=== PATIENT | male | born 1955 | race Hispanic/Latino ===

== ENCOUNTER 2019-12-20 09:29 | Emergency (ER) | payer BC ==
[~2019-12-20 09:29] MED LIST: AEC81 PO; COLON HEALTH; METO25TA3 PO; NITR0.4T50 SL; OLME20TA10 PO; ROSU20TA31 PO; TAMS-1 PO; TICA90TA PO
[2019-12-20 10:06] LABS: BASOPHILS % (AUTO) 0.5 % (0.0-5.0); EOSINOPHILS % (AUTO) 0.9 % (0.0-8.0); HEMATOCRIT 40.9 % (42-54); LYMPHOCYTES % (AUTO) 37.3 % (21.0-51.0); MEAN CORPUSCULAR HGB CONC 34.2 g/dL (32.0-36.0); MEAN CORPUSCULAR VOLUME 90.5 fL (79-99); MONOCYTES % (AUTO) 7.4 % (3.0-13.0); NEUTROPHILS % (AUTO) 53.5 % (40.0-77.0); PLATELET COUNT (AUTO) 204 K/uL (130-400); RED BLOOD CELL COUNT(AUTO) 4.52 MIL/uL (4.50-6.20); RED CELL DISTRIBUTION WIDTH 12.1 % (11.0-15.5); WHITE BLOOD COUNT (AUTO) 5.7 K/uL (4.8-10.8)
[2019-12-20 10:15] LABS: CREATININE 0.9 mg/dL (0.5-1.5); POTASSIUM 4.5 mmol/L (3.5-5.1)
[2019-12-20] MEDS ORDERED: ASPIRIN 325 MG TABLET ONE (10:30)
== END 2019-12-20 13:16 | disposition home or self-care (01) ==
LOC: EDH 09:29
DX: R53.81 Other malaise (principal); R53.83 Other fatigue; I10 Essential (primary) hypertension; E78.00 Pure hypercholesterolemia, unspecified
CPT/HCPCS: 36415; 71045; 80048; 84484; 85025; 93005

== ENCOUNTER → 2020-01-07 | Outpatient (CLI) | payer BC | END | disposition home or self-care (01) | LOC: SHCH 14:14 | PROVIDERS: ATTEND Internal Medicine Cardiovascular Disease | DX: I25.10 Atherosclerotic heart disease of native coronary artery without angina pectoris (principal) | CPT/HCPCS: 93306 ==

== ENCOUNTER → 2020-01-22 | Outpatient (CLI) | payer BC | END | disposition home or self-care (01) | LOC: SHCH 08:27 | PROVIDERS: ATTEND Internal Medicine Cardiovascular Disease | DX: I65.23 Occlusion and stenosis of bilateral carotid arteries (principal); R42 Dizziness and giddiness | CPT/HCPCS: 93880 ==

== ENCOUNTER 2022-08-26 11:11 | Day surgery (SDC) | payer BC, SELFPAY ==
[2022-08-25 14:25] VITALS: BP 111/66
[2022-08-25 14:28] LABS: BASOPHILS % (AUTO) 0.6 % (0.0-5.0); EOSINOPHILS % (AUTO) 1.1 % (0.0-8.0); HEMATOCRIT 43.3 % (42-54); LYMPHOCYTES % (AUTO) 32.7 % (21.0-51.0); MEAN CORPUSCULAR HEMOGLOBIN 31.1 pg (27.0-33.0); MEAN CORPUSCULAR HGB CONC 33.5 g/dL (32.0-36.0); MEAN CORPUSCULAR VOLUME 92.9 fL (79-99); MONOCYTES % (AUTO) 7.1 % (3.0-13.0); NEUTROPHILS % (AUTO) 58.3 % (40.0-77.0); PLATELET COUNT (AUTO) 244 K/uL (130-400); RED BLOOD CELL COUNT(AUTO) 4.66 MIL/uL (4.50-6.20); RED CELL DISTRIBUTION WIDTH 12.9 % (11.0-15.5); WHITE BLOOD COUNT (AUTO) 6.2 K/uL (4.8-10.8)
[2022-08-25 14:38] LABS: INR 1.01 (0.85-1.15)
[2022-08-25 14:40] LABS: PARTIAL THROMBOPLASTIN TIME 34.7 SEC (26.3-35.5)
[2022-08-25 14:45] LABS: CREATININE 0.8 mg/dL (0.5-1.5); POTASSIUM 4.6 mmol/L (3.5-5.1)
[~2022-08-26] VITALS: Ht 175.3 cm; Wt 106.7 kg
[~2022-08-26 11:11] MED LIST changes: +APIX5TAB PO; -COLON HEALTH; -METO25TA3 PO; +METO25TA6 PO; -NITR0.4T50 SL; -OLME20TA10 PO; +OLME20TA73 PO; -TAMS-1 PO; -TICA90TA PO; +VITAMIN C PO; +VITAMIN D PO
[2022-08-26 11:45] VITALS: BP 119/73
[2022-08-26] MEDS ORDERED: LIDOCAINE HCL 2% VISCOUS 15 ML UDCUP ONE (12:09)
[2022-08-26] MEDS ORDERED: FLUMAZENIL 0.1MG/1ML 5ML VIAL IV ONE (12:10)
[2022-08-26] MEDS ORDERED: NALOXONE HCL 0.4 MG/1 ML ML ONE (12:10)
[2022-08-26] MEDS ORDERED: FENTANYL CITRATE PF 50 MCG/1 ML 2ML VIAL ONE ×2 (12:10→13:34)
[2022-08-26] MEDS ORDERED: MIDAZOLAM HCL 1 MG/ML 2ML VIAL ONE ×2 (12:11→13:34)
== END 2022-08-26 15:45 | disposition home or self-care (01) ==
LOC: DAH 11:11
PROVIDERS: ATTEND Internal Medicine Cardiovascular Disease
DX: I08.1 Rheumatic disorders of both mitral and tricuspid valves (principal); I48.0 Paroxysmal atrial fibrillation; I25.2 Old myocardial infarction; I44.7 Left bundle-branch block, unspecified; I11.9 Hypertensive heart disease without heart failure; I25.110 Atherosclerotic heart disease of native coronary artery with unstable angina pectoris; E66.9 Obesity, unspecified; E78.5 Hyperlipidemia, unspecified; F17.210 Nicotine dependence, cigarettes, uncomplicated; Z82.49 Family history of ischemic heart disease and other diseases of the circulatory system; Z83.3 Family history of diabetes mellitus; Z82.3 Family history of stroke; Z80.9 Family history of malignant neoplasm, unspecified; Z72.89 Other problems related to lifestyle; Z95.5 Presence of coronary angioplasty implant and graft; Z68.34 Body mass index [BMI] 34.0-34.9, adult
CPT/HCPCS: 80048; 85025; 85610; 85730; 36415; 93005; 92960; 93325; 93312; A4223 ×3; J3010 ×2; J2250 ×2; A4615; A4215; A7002; A4222; A4221; A4663; A4216; A4606; 99152; J2310; J3490

== ENCOUNTER → 2024-05-24 | Outpatient (CLI) | payer MEDICARE ==
[~2024-05-24] MED LIST changes: -ROSU20TA31 PO; +ROSU20TA98 PO
[2024-05-24 12:44] LABS: CREATININE 0.9 mg/dL (0.5-1.3)
== END | disposition home or self-care (01) ==
LOC: LAB 11:14
PROVIDERS: ATTEND Student in an Organized Health Care Education/Training Program
DX: M79.9 Soft tissue disorder, unspecified (principal)
CPT/HCPCS: 36415; 82565; 84520

== ENCOUNTER → 2024-05-30 | Outpatient (CLI) | payer MEDICARE ==
[~2024-05-30] MED LIST changes: +GADOTERATE MEGLUMINE 10 MMOL/20 ML VIAL IV ONE
--- NOTE | 2024-05-30 13:36 | HMCIMG ---
MR HUMERUS RIGHT WWO HISTORY: Lump in the biceps COMPARISON: None TECHNIQUE: MRI of the right humerus was performed utilizing multiple pulse sequences in axial, coronal and sagittal planes. Patient was given 20 cc of Clariscan through intravenous route. FINDINGS: At the region of interest where marker was placed, there is round enhancing nodule measuring 17 x 19 mm within the right biceps muscle with neoplastic process not excluded. Other possibility cannot be excluded. There is complex bony lesion noted in the right humeral head and humeral neck measuring 3.8 x 2.8 cm with enhancement with differential diagnosis include enchondroma versus chondrosarcoma. No adjacent soft tissue mass is seen however. No evidence of fracture or dislocation is seen. IMPRESSION: 1. At the region of interest where marker was placed, there is round enhancing nodule measuring 17 x 19 mm within the right biceps muscle with neoplastic process not excluded. Other possibility cannot be excluded. There is complex bony lesion noted in the right humeral head and humeral neck measuring 3.8 x 2.8 cm with enhancement with differential diagnosis include enchondroma versus chondrosarcoma. No adjacent soft tissue mass is seen however.
== END | disposition home or self-care (01) ==
LOC: RAH 09:55
PROVIDERS: ATTEND Student in an Organized Health Care Education/Training Program
DX: M89.8X2 Other specified disorders of bone, upper arm (principal); M79.9 Soft tissue disorder, unspecified
CPT/HCPCS: 73220; A9575